=== PATIENT | male | born 1970 | race Hispanic/Latino ===

== ENCOUNTER 2017-07-27 17:26 | Emergency (ER) | payer SELFPAY ==
[2017-07-27 18:01] LABS: Absolute Lymphocytes (CBC) 1.4 K/uL (0.7-4.9); Absolute Monocytes 0.5 K/uL (0.1-1.3); Basophils % 0.7 % (0-1.3); Eosinophils % 0.9 % (0-4.4); Hematocrit 43.4 % (39.6-49.0); MCH 30.5 pg (27.0-35.0); MCV 91.9 fL (80-100); MPV 10.3 fL (7.6-11.3); Monocytes % 5.2 % (3.3-12.3); RBC Red Blood Cell Count 4.73 M/uL (4.33-5.43)
[2017-07-27] MEDS ORDERED: INSULIN -REGULAR HUMAN 50 UNIT/0.5 ML ML ONE ×2 (18:04→18:44)
[2017-07-27] MEDS ORDERED: NA CHLORIDE 0.9% 1,000 ML ONE ×3 (18:04→19:36)
[2017-07-27 18:13] LABS: Protime INR 0.88
[2017-07-27 18:13] LABS: Arterial Blood Carboxyhemoglob 1.2 % (0-1.5); Blood Gas Oxyhemoglobin 94.3 % (94-97); Blood O2 Saturation 96.4 % (92-98.5)
[2017-07-27 18:17] LABS: Potassium 4.6 mEq/L (3.6-5.0)
--- NOTE | 2017-07-27 18:18 | RAD REPORT ---
EXAM DESCRIPTION: RAD - Chest Single View - 07/27/2017 6:11 pm CLINICAL HISTORY: Chest pain, diabetes. COMPARISON: 12/30/2012 FINDINGS: Portable technique limits examination quality. The lungs are grossly clear. The heart is normal in size. No displaced fractures. IMPRESSION: No acute intrathoracic process suspected.
[2017-07-27 18:27] LABS: Bilirubin Direct 0.1 mg/dL (0-0.2); Bilirubin Total 1.1 mg/dL (0.3-1.2); CKMB Creatine Kinase MB 1.4 ng/ml (0.3-4.0); Magnesium 2.2 mg/dL (1.8-2.5); Protein, Total 7.2 g/dL (6.0-8.3)
[2017-07-27 18:28] LABS: Urine Blood NEGATIVE (NEG); Urine Glucose 2+ (NEG); Urine Protein NEGATIVE (NEG); Urine Specific Gravity <1.005 (1.005-1.030)
[2017-07-27] MEDS ORDERED: INSULIN DETEMIR 100 UNIT/1 ML INSULIN SQ ONE (19:00)
--- NOTE | 2017-07-27 19:49 | ER ---
Nurse's Notes [facility] Name: Delonte Starks Age: 47 yrs Sex: Male : 1970 Arrival Date: 07/27/2017 Time: 17:28 Bed 8 Private MD: Diagnosis: Type 1 diabetes mellitus;Weakness Presentation: 07/27 17:29 Presenting complaint: EMS states: Pt called for adriana leg pain x 2 week sand blurred ph vision, hx of IDDM, reports that he has not taken his insulin since May r/t financial problems, BGL reading HIGH for EMS, reports hx of DKA. Transition of care: patient was not received from another setting of care. Onset of symptoms was July 27, 2017. Risk Assessment: Do you want to hurt yourself or someone else? Patient reports no desire to harm self or others. Initial Sepsis Screen: Does the patient meet any 2 criteria? No. Patient's initial sepsis screen is negative. Does the patient have a suspected source of infection? No. Patient's initial sepsis screen is negative. Care prior to arrival: BGL reading HIGH (>450). 17:29 Method Of Arrival: EMS: [facility] 17:29 Acuity: ABHISHEK 2 ph Triage Assessment: 19:14 General: Appears in no apparent distress. comfortable, Behavior is calm, cooperative, ch appropriate for age. Pain: Denies pain. Neuro: No deficits noted. Respiratory: Airway is patent Respiratory effort is even, unlabored, Breath sounds are clear bilaterally. GI: No signs and/or symptoms were reported involving the gastrointestinal system. Derm: Skin is pale. Historical: - Allergies: 17:37 No Known Allergies; ph - Home Meds: 17:37 Lantus Sub-Q [Active]; Novolin R Sub-Q [Active]; ph - PMHx: 17:37 Diabetes - IDDM; ph - Immunization history:: Adult Immunizations unknown. - Social history:: Smoking status: Patient/guardian denies using tobacco. - Ebola Screening: : No symptoms or risks identified at this time. Screenin:00 Abuse screen: Denies threats or abuse. Denies injuries from another. Nutritional bp screening: No deficits noted. Tuberculosis screening: No symptoms or risk factors identified. Fall Risk None identified. Assessment: 18:21 Reassessment: Patient appears in no apparent distress at this time. Patient and/or ch family updated on plan of care and expected duration. Pain level reassessed. Patient is alert, oriented x 3, equal unlabored respirations, skin warm/dry/pink. 19:00 Reassessment: RECD REPORT FROM ESTHER MONGE. 47YO HM P/W HYPERGLYCEMIA. NO ANION GAP bp NOTED, PT VS STABLE ON MONITOR. 21:00 Reassessment: ADMIT IN PROCESS, NO APPARENT DISTRESS. VS STABLE ON MONITOR. bp 21:57 Reassessment: PER ADMIT , BMP TO BE RE-EVALUATED PRIOR TO FURTHER ADMIT CONSIDERATION.bp 23:24 Reassessment: ADMIT DEFERRED BY HOSPITALIST, PT D/C HOME AMBULATORY WITH FAMILY, DX bp WITH HYERGLYCEMIA (RESOLVED). Vital Signs: 17:32 BP 145 / 100; Pulse 91; Resp 18; Pulse Ox 96% on R/A; Weight 108.86 kg; Height 5 ft. 11 ph in. (180.34 cm); Pain 9/10; 18:21 BP 109 / 82; Pulse 93; Resp 16; Temp 98.6; Pulse Ox 99% on R/A; Pain 0/10; ch 19:00 BP 147 / 96; Pulse 93; Resp 19; Pulse Ox 97% ; bp 20:39 BP 118 / 87; Pulse 76; Resp 15; Pulse Ox 98% ; bp 21:00 BP 127 / 74; Pulse 93; Resp 20; Pulse Ox 99% ; bp 22:00 BP 129 / 87; Pulse 73; Resp 20; Pulse Ox 98% ; bp 23:00 BP 123 / 91; Pulse 80; Resp 17; Pulse Ox 97% ; bp 17:32 Body Mass Index 33.47 (108.86 kg, 180.34 cm) ph ED Course: 17:28 Patient arrived in ED. ph 17:29 Wes Hollingsworth MD is Attending Physician. jose luis 17:30 Inserted saline lock: 20 gauge in right forearm, using aseptic technique. Blood ch collected. 17:32 Triage completed. ph 17:35 Stephanie Bravo, SALEEM is Primary Nurse. ch 17:38 Arm band placed on. ph 17:47 EKG done, by commercial hvac service technician. reviewed by Wes Hollingsworth MD. sm3 18:08 X-ray completed. Portable x-ray completed in exam room. Patient tolerated procedure kc2 well. 18:10 XRAY Chest (1 view) In Process Unspecified. EDMS 19:14 Patient has correct armband on for positive identification. Placed in gown. Bed in low ch position. Call light in reach. Side rails up X 1. Report given to Lilian Sun. 19:45 Dino Hamilton, RN is Primary Nurse. bp 19:47 Shital Carrasquillo MD is Hospitalizing Provider. jose luis 23:25 No provider procedures requiring assistance completed. IV discontinued, intact, bp bleeding controlled, No redness/swelling at site. Pressure dressing applied. Administered Medications: 18:19 Drug: Insulin Regular Human 10 units {Co-Signature: ph (Esther Carmen RN).} Route: ch Sub-Q; Site: right upper arm; 18:37 Follow up: Response: No adverse reaction ch 18:20 Drug: NS 0.9% 1000 ml Route: IV; Rate: 1 bolus; Site: right forearm; ch 18:38 Follow up: IV Status: Completed infusion; IV Intake: 1000ml ch 18:20 Drug: Insulin Regular Human 10 units {Co-Signature: ph (Esther Carmen RN).} Route: IVP; Site: right forearm; 18:38 Follow up: Response: No adverse reaction ch 18:38 Drug: NS 0.9% 1000 ml Route: IV; Rate: 1 bolus; Site: right forearm; ch 18:45 Drug: Insulin Regular Human 10 units {Co-Signature: (Stephanie Bravo RN).} Route: ss IVP; Site: right upper arm; 19:08 Follow up: Response: No adverse reaction; Marked relief of symptoms ch 18:55 Drug: Levemir 100 unit/mL 40 units Route: Sub-Q; Site: right upper arm; ss 19:08 Follow up: Response: No adverse reaction; Marked relief of symptoms ch 19:30 Drug: NS 0.9% 1000 ml Route: IV; Rate: 125 ml/hr; Site: right forearm; bp 20:15 Drug: Potassium Chloride 20 mEq Route: PO; bp 21:56 Follow up: Response: No adverse reaction bp Point of Care Testing: Blood Glucose: 19:08 Blood Glucose: 404 mg/dL; ch 20:39 Blood Glucose: 277 mg/dL; bp Ranges: Intake: 18:38 IV: 1000ml; Total: 1000ml. ch Outcome: 19:48 Decision to Hospitalize by Provider. jose luis 23:26 Discharged to home ambulatory, with family. bp 23:26 Condition: stable 23:26 Discharge instructions given to patient, Instructed on discharge instructions, follow up and referral plans. medication usage, Demonstrated understanding of instructions, follow-up care, medications, Prescriptions given X 1. 23:27 Patient left the ED. bp Addendum: 08/01/2017 11:05 Addendum: Culture Results: Positive urine culture. No follow up orders per MISBAH Rosenberg as patient was not having any urinary symptoms and was instructed to follow up with PCP. Signatures: Dispatcher [employer] EDMS Stephanie Bravo, RN RN Wes Hollingsworth MD MD cha Smirch, Shelby, RN RN Esther Carmen RN RN Tracey Brooks [facility] Dino Hamilton RN RN Dipti Aguero 3 Esther Carmen RN ph Stephanie Bravo RN
--- NOTE | 2017-07-27 19:49 | EDPHYS ---
Physician Documentation [facility] Name: Delonte Starks Age: 47 yrs Sex: Male : 1970 Arrival Date: 07/27/2017 Time: 17:28 Bed 8 Private MD: ED Physician Wes Hollingsworth HPI: 07/27 17:51 This 47 yrs old Male presents to ER via EMS with complaints of High Blood jose luis Sugar. 17:51 This 47 yrs old Male presents to ER via EMS with complaints of High Blood jose luis Sugar. 17:51 The patient or guardian reports hyperglycemia. Onset: The symptoms/episode jose luis began/occurred 5 day(s) ago. Associated signs and symptoms: Pertinent positives: dry skin, nausea, polydipsia, polyuria. Current symptoms: In the emergency department the patient's symptoms are unchanged from the initial presentation. The patient has experienced similar episodes in the past, several times. Historical: - Allergies: 17:37 No Known Allergies; ph - Home Meds: 17:37 Lantus Sub-Q [Active]; Novolin R Sub-Q [Active]; ph - PMHx: 17:37 Diabetes - IDDM; ph - Immunization history:: Adult Immunizations unknown. - Social history:: Smoking status: Patient/guardian denies using tobacco. - Ebola Screening: : No symptoms or risks identified at this time. ROS: 17:52 Constitutional: Negative for fever, chills, and weight loss, Eyes: Negative for injury, jose luis pain, redness, and discharge, ENT: Negative for injury, pain, and discharge, Neck: Negative for injury, pain, and swelling, Cardiovascular: Negative for chest pain, palpitations, and edema, Respiratory: Negative for shortness of breath, cough, wheezing, and pleuritic chest pain, Abdomen/GI: Negative for abdominal pain, nausea, vomiting, diarrhea, and constipation, Back: Negative for injury and pain, : Negative for injury, bleeding, discharge, and swelling, MS/Extremity: Negative for injury and deformity, Skin: Negative for injury, rash, and discoloration, Neuro: Negative for headache, weakness, numbness, tingling, and seizure, Psych: Negative for depression, anxiety, suicide ideation, homicidal ideation, and hallucinations, Allergy/Immunology: Negative for hives, rash, and allergies, Hematologic/Lymphatic: Negative for swollen nodes, abnormal bleeding, and unusual bruising. 17:52 Endocrine: Positive for polydipsia, polyuria. Exam: 17:52 Constitutional: This is a well developed, well nourished patient who is awake, alert, jose luis and in no acute distress. Head/Face: Normocephalic, atraumatic. Eyes: Pupils equal round and reactive to light, extra-ocular motions intact. Lids and lashes normal. Conjunctiva and sclera are non-icteric and not injected. Cornea within normal limits. Periorbital areas with no swelling, redness, or edema. ENT: Nares patent. No nasal discharge, no septal abnormalities noted. Tympanic membranes are normal and external auditory canals are clear. Oropharynx with no redness, swelling, or masses, exudates, or evidence of obstruction, uvula midline. Mucous membranes moist. Neck: Trachea midline, no thyromegaly or masses palpated, and no cervical lymphadenopathy. Supple, full range of motion without nuchal rigidity, or vertebral point tenderness. No Meningismus. Chest/axilla: Normal chest wall appearance and motion. Nontender with no deformity. No lesions are appreciated. Cardiovascular: Regular rate and rhythm with a normal S1 and S2. No gallops, murmurs, or rubs. Normal PMI, no JVD. No pulse deficits. Respiratory: Lungs have equal breath sounds bilaterally, clear to auscultation and percussion. No rales, rhonchi or wheezes noted. No increased work of breathing, no retractions or nasal flaring. Abdomen/GI: Soft, non-tender, with normal bowel sounds. No distension or tympany. No guarding or rebound. No evidence of tenderness throughout. Back: No spinal tenderness. No costovertebral tenderness. Full range of motion. Male : Normal genitalia with no discharge or lesions. Skin: Warm, dry with normal turgor. Normal color with no rashes, no lesions, and no evidence of cellulitis. MS/ Extremity: Pulses equal, no cyanosis. Neurovascular intact. Full, normal range of motion. Neuro: Awake and alert, GCS 15, oriented to person, place, time, and situation. Cranial nerves II-XII grossly intact. Motor strength 5/5 in all extremities. Sensory grossly intact. Cerebellar exam normal. Normal gait. Psych: Awake, alert, with orientation to person, place and time. Behavior, mood, and affect are within normal limits. Vital Signs: 17:32 BP 145 / 100; Pulse 91; Resp 18; Pulse Ox 96% on R/A; Weight 108.86 kg; Height 5 ft. 11 ph in. (180.34 cm); Pain 9/10; 18:21 BP 109 / 82; Pulse 93; Resp 16; Temp 98.6; Pulse Ox 99% on R/A; Pain 0/10; ch 19:00 BP 147 / 96; Pulse 93; Resp 19; Pulse Ox 97% ; bp 20:39 BP 118 / 87; Pulse 76; Resp 15; Pulse Ox 98% ; bp 21:00 BP 127 / 74; Pulse 93; Resp 20; Pulse Ox 99% ; bp 22:00 BP 129 / 87; Pulse 73; Resp 20; Pulse Ox 98% ; bp 23:00 BP 123 / 91; Pulse 80; Resp 17; Pulse Ox 97% ; bp 17:32 Body Mass Index 33.47 (108.86 kg, 180.34 cm) ph MDM: 17:29 Patient medically screened. [facility] 17:53 Data reviewed: vital signs, nurses notes, lab test result(s), EKG, radiologic studies, jose luis plain films. 07/27 17:34 Order name: Basic Metabolic Panel; Complete Time: 18:30 [facility] 07/27 17:34 Order name: BNP; Complete Time: 18:30 [facility] 07/27 17:34 Order name: CBC with Diff; Complete Time: 18:26 [facility] 07/27 17:34 Order name: Ckmb; Complete Time: 18:30 [facility] 07/27 17:34 Order name: CPK; Complete Time: 18:30 [facility] 07/27 17:34 Order name: LFT's; Complete Time: 18:30 [facility] 07/27 17:34 Order name: Magnesium; Complete Time: 18:30 [facility] 07/27 17:34 Order name: PT-INR; Complete Time: 18:26 [facility] 07/27 17:35 Order name: Ptt, Activated; Complete Time: 18:26 [facility] 07/27 17:35 Order name: Troponin (emerg Dept Use Only); Complete Time: 18:30 [facility] 07/27 17:35 Order name: Urine Culture [facility] 07/27 17:35 Order name: Lipase; Complete Time: 18:30 [facility] 07/27 17:35 Order name: glucometer results - FOR PT WITH NO ID; Complete Time: 19:53 ph 07/27 17:35 Order name: XRAY Chest (1 view); Complete Time: 18:26 [facility] 07/27 17:35 Order name: EKG; Complete Time: 17:35 [facility] 07/27 17:35 Order name: Cardiac monitoring; Complete Time: 18:21 [facility] 07/27 17:41 Order name: ABG; Complete Time: 18:26 [facility] 07/27 18:22 Order name: Urine Dipstick--Ancillary (enter results); Complete Time: 18:30 ag 07/27 19:10 Order name: Chem 7 jose luis 07/27 21:56 Order name: BMP bp 07/27 22:27 Order name: Basic Metabolic Panel EDMS 07/27 17:35 Order name: EKG - Nurse/Tech; Complete Time: 18:38 [facility] 07/27 17:35 Order name: IV Saline Lock; Complete Time: 18:21 [facility] 07/27 17:35 Order name: Labs collected and sent; Complete Time: 18:21 [facility] 07/27 17:35 Order name: O2 Per Protocol; Complete Time: 18:21 [facility] 07/27 17:35 Order name: O2 Sat Monitoring; Complete Time: 18:21 [facility] 07/27 17:35 Order name: Urine Dipstick-Ancillary (obtain specimen); Complete Time: 18:21 [facility] Administered Medications: 18:19 Drug: Insulin Regular Human 10 units {Co-Signature: pratibha (Esther Carmen RN).} Route: Sub-Q; Site: right upper arm; 18:37 Follow up: Response: No adverse reaction 18:20 Drug: NS 0.9% 1000 ml Route: IV; Rate: 1 bolus; Site: right forearm; 18:38 Follow up: IV Status: Completed infusion; IV Intake: 1000ml 18:20 Drug: Insulin Regular Human 10 units {Co-Signature: pratibha (Esther Carmen RN).} Route: IVP; Site: right forearm; 18:38 Follow up: Response: No adverse reaction 18:38 Drug: NS 0.9% 1000 ml Route: IV; Rate: 1 bolus; Site: right forearm; 18:45 Drug: Insulin Regular Human 10 units {Co-Signature: (Stephanie Bravo RN).} Route: IVP; Site: right upper arm; 19:08 Follow up: Response: No adverse reaction; Marked relief of symptoms ch 18:55 Drug: Levemir 100 unit/mL 40 units Route: Sub-Q; Site: right upper arm; ss 19:08 Follow up: Response: No adverse reaction; Marked relief of symptoms ch 19:30 Drug: NS 0.9% 1000 ml Route: IV; Rate: 125 ml/hr; Site: right forearm; bp 20:15 Drug: Potassium Chloride 20 mEq Route: PO; bp 21:56 Follow up: Response: No adverse reaction bp Point of Care Testing: Blood Glucose: 19:08 Blood Glucose: 404 mg/dL; ch 20:39 Blood Glucose: 277 mg/dL; bp Ranges: Critical Glucose Levels:Adult <50 mg/dl or >400 mg/dl <40 mg/dl or >180 mg/dl Disposition: 07/27/17 19:48 Hospitalization ordered by Shital Carrasquillo for Observation. Preliminary diagnosis are Type 1 diabetes mellitus, Weakness. - Bed requested for Telemetry/MedSurg (observation). - Status is Observation. bp - Condition is Fair. - Problem is new. - Symptoms have improved. UTI on Admission? No Signatures: Dispatcher [employer] EDCT Stephanie Bravo RN RN Tessa Conner RN SALEEM Wes Hollingsworth MD MD cha Smirch, Shelby, RN RN Esther Carmen RN RN Dino Hamilton RN RN Génesis Hyman Esther Carmen RN ph Stephanie Bravo RN Corrections: (The following items were deleted from the chart) 17:36 17:35 GLUCOSE+C.LAB.BRZ ordered. EDCT EDCT 20:11 19:48 Hospitalization Ordered by Shital Carrasquillo MD for Observation. Preliminary mw diagnosis is Type 1 diabetes mellitus; Weakness. Bed requested for Telemetry/MedSurg (observation). Status is Observation. Condition is Fair. Problem is new. Symptoms have improved. UTI on Admission? No. jose luis 20:13 20:11 07/27/2017 19:48 Hospitalization Ordered by Shital Carrasquillo MD for Observation. eb Preliminary diagnosis is Type 1 diabetes mellitus; Weakness. Bed requested for Telemetry/MedSurg (observation). Status is Observation. Condition is Fair. Problem is new. Symptoms have improved. UTI on Admission? No. mw 20:13 20:13 07/27/2017 19:48 Hospitalization Ordered by Shital Carrasquillo MD for Observation. mw Preliminary diagnosis is Type 1 diabetes mellitus; Weakness. Bed requested for Telemetry/MedSurg (observation). Status is Observation. Condition is Fair. Problem is new. Symptoms have improved. UTI on Admission? No. eb 23:04 20:13 07/27/2017 19:48 Hospitalization Ordered by Shital Carrasquillo MD for Observation. mw Preliminary diagnosis is Type 1 diabetes mellitus; Weakness. Bed requested for Telemetry/MedSurg (observation). Status is Observation. Condition is Fair. Problem is new. Symptoms have improved. UTI on Admission? No. mw 23:27 23:04 07/27/2017 19:48 Hospitalization Ordered by Shital Carrasquillo MD for Observation. bp Preliminary diagnosis is Type 1 diabetes mellitus; Weakness. Bed requested for Telemetry/MedSurg (observation). Status is Observation. Condition is Fair. Problem is new. Symptoms have improved. UTI on Admission? No. mw
[2017-07-27] MEDS ORDERED: D50W 25 GM/50 ML SYRINGE IV PRN ×2 (19:50→19:51)
[2017-07-27] MEDS ORDERED: GLUCAGON 1 MG/VIAL IM PRN ×2 (19:50→19:51)
[2017-07-27] MEDS ORDERED: POTASSIUM CL SA 10 MEQ TAB PO ONE (20:34)
[2017-07-27] MEDS ORDERED: INSULIN -REGULAR HUMAN 50 UNIT/0.5 ML ML SQ SCH (21:00)
[2017-07-27 22:25] LABS: BUN Blood Urea Nitrogen 13 mg/dL (6-20); Bicarbonate 23 mEq/L (21-31); Glucose Level 294 mg/dL (65-120); Sodium Level 137 mEq/L (135-145)
--- NOTE | 2017-07-27 23:02 | P.HP ---
Certification for Inpatient Patient admitted to: Observation With expected LOS: <2 Midnights Practitioner: I am a practitioner with admitting privileges, knowledge of patient current condition, hospital course, and medical plan of care. Services: Services provided to patient in accordance with Admission requirements found in Title 42 Section 412.3 of the Code of Federal Regulations Patient History Date of Service: 07/27/17 Reason for admission: uncotrolled diabetes mellitus, hyperglycemia History of Present Illness: Mr Starks is a 47 years old male with history of DM II, insulin dependent, who quit taking his insulin 3 month ago due to financial issues. He does not have PCP either. Since 2 weeks ago, he start with blurred vision, increasing urination and thirsty. He denied abdominal pain but has had nausea and vomiting. He was also dizzy at the time of arrival. Lab work was remarkable for hyperglycemia 891 mg/dl. No signs of DKA. Allergies No Known Allergies Allergy (Unverified 12/31/12 00:15) Home Medications: Aspirin Enteric Coated [ASPIRIN 81 MG EC*] 81 mg PO DAILY 12/31/12 Insulin Aspart [Novolog*] 0 unit SQ TID #1 ml 01/05/13 Insulin Glargine Human [Lantus*] 20 unit SQ BID #1 ml 01/05/13 - Past Medical/Surgical History Diabetic: Yes -: IDDM Past Surgical History: Reviewed- Non-Contributory - Family History Family History: Reviewed- Non-Contributory - Social History Alcohol use: Yes CD- Drugs: Yes Caffeine use: Yes Place of Residence: Home Review of Systems 10-point ROS is otherwise unremarkable Physical Examination - Physical Exam General: Alert, In no apparent distress HEENT: Atraumatic, PERRLA, Mucous membr. moist/pink, EOMI, Sclerae nonicteric Neck: Supple, 2+ carotid pulse no bruit, No LAD, Without JVD or thyroid abnormality Respiratory: Clear to auscultation bilaterally, Normal air movement Cardiovascular: Regular rate/rhythm, Normal S1 S2 Gastrointestinal: Normal bowel sounds, No tenderness Musculoskeletal: No tenderness Integumentary: No rashes Neurological: Normal gait, Normal speech, Normal strength at 5/5 x4 extr, Normal tone, Normal affect Lymphatics: No axilla or inguinal lymphadenopathy - Studies Laboratory Data (last 24 hrs) 07/27/17 17:40: PT 10.4, INR 0.88, APTT 33.4 07/27/17 17:40: WBC 10.1, Hgb 14.4, Hct 43.4, Plt Count 285 07/27/17 17:40: B-Natriuretic Peptide 13 07/27/17 17:40: Sodium 124 L, Potassium 4.6, BUN 16, Creatinine 1.02, Glucose 891 H*, Magnesium 2.2, Total Bilirubin 1.1, AST 14, ALT 27, Alkaline Phosphatase 98, Lipase 52 H Assessment and Plan - Problems (Diagnosis) (1) Diabetes mellitus Current Visit: Yes Status: Acute Qualifiers: Diabetes mellitus type: type 2 Diabetes mellitus senior living insulin use: with director long term care use Diabetes mellitus complication status: with unspecified complications Qualified Code(s): E11.8 - Type 2 diabetes mellitus with unspecified complications; Z79.4 - FPC (current) use of insulin (2) Hyperosmolar syndrome Current Visit: Yes Status: Acute - Plan The patient came to ER with signs consistent with hyperosmolar syndrome. His blood sugar was above 800 mg/dl. He was treated with aggressive IV fluid infusion and SQ long acting and regular insulin. After a few hours in ED, the patient significantly improved his symptoms, he was able to ambulate and tolerate oral intake. BS also decreased. At this point the patient is clinically and hemodynamically stable to be discharged home. It is very important to be compliant with his medication, patient was advised about potential diabetic complications. Also advised to establish a PCP MELINDA for insulin dose adjustment as needed. The patient will be discharge home in stable condition. - Advance Directives Does patient have a Living Will: No Does patient have a Durable POA for Healthcare: No - Code Status/Comfort Care Code Status Assessed: Yes Code Status: Full Code
[2017-07-27 23:32] VITALS: TEMP 98.6
[2017-07-27 23:38] VITALS: BP 123/91; O2SAT 97
--- NOTE | 2017-07-28 06:20 | EKG ---
Test Date: 2017-07-27 Test Time: 17:43:11 Director Food And Beverage: GIOVANNI MEASUREMENT RESULTS: Intervals: Rate: 89 VA: 146 QRSD: 84 QT: 354 QTc: 430 Marion: P: 51 VA: 146 QRS: -11 T: 31 INTERPRETIVE STATEMENTS: Normal sinus rhythm Moderate voltage criteria for LVH, may be normal variant Nonspecific ST abnormality Abnormal ECG Compared to ECG 12/31/2012 07:54:09 Prolonged QT interval no longer present ST (T wave) deviation still present Electronically Signed On 07-28-17 06:19:43 CDT by Howard Rodriguez
[2017-07-28] MEDS ORDERED: INSULIN DETEMIR 100 UNIT/1 ML INSULIN SQ SCH (08:00)
== END 2017-07-27 23:25 | disposition home or self-care (01) ==
LOC: ER 17:26 → ERHOLD 19:49 → UNDOADMOB 19:49 → UNDODISOB 23:25 → ER 23:25
DX: E10.65 Type 1 diabetes mellitus with hyperglycemia (principal); Z79.4 Long term (current) use of insulin
CPT/HCPCS: 36415; 71045; 80048; 80076; 81003; 82550; 82553; 82805; 82962; 83690; 83735; 83880; 84484; 85025; 85610; 85730; 87077; 87086; 87088; 87186; 93005; 96372; 99284; G0378; J7030

== ENCOUNTER 2024-03-06 18:10 | Emergency (ER) | payer SELFPAY ==
[2024-03-06] MEDS ORDERED: NA CHLORIDE 0.9% 1,000 ML ONE ×3 (18:24→21:38)
[2024-03-06 18:53] LABS: Absolute Basophils 0.3 K/uL (0-0.5); Absolute Eosinophils 0.1 K/uL (0-0.5); Absolute Lymphocytes (CBC) 0.8 K/uL (0.7-4.9); Absolute Monocytes 0.4 K/uL (0.1-1.3); Absolute Neutrophil 8.9 K/uL (1.8-8.0); Basophils % 2.4 % (0-1.3); Eosinophils % 1.2 % (0-4.4); Hematocrit 36.4 % (39.6-49.0); Hemoglobin 11.6 g/dL (13.6-17.9); Lymphocytes % 7.4 % (15.3-44.8); MCH 26.9 pg (27.0-35.0); MCHC 31.8 g/dL (32.0-36.0); MCV 84.4 fL (80-100); MPV 9.5 fL (7.6-11.3); Monocytes % 3.5 % (3.3-12.3); Neutrophils % 85.5 % (41.7-73.7); Platelets 329 thou/uL (152-406); RBC Red Blood Cell Count 4.31 M/uL (4.33-5.43); Red Cell Distribution Width 15.5 % (12.1-15.2)
[2024-03-06 18:55] LABS: ALT/SGPT 39 U/L (16-61); AST/SGOT 18 U/L (15-37); Albumin 3.2 g/dL (3.4-5.0); Albumin/Globulin Ratio 0.8 (1.1-1.8); Alkaline Phosphatase 131 U/L (45-117); BETA HYDROXYBUTYRATE 0.56 mmol/L (0.02-0.27); BUN Blood Urea Nitrogen 26 mg/dL (7-18); Bicarbonate 21 mEq/L (21-32); Bilirubin Direct < 0.2 mg/dL (0-0.2); Bilirubin Indirect, Calculated 0.1 mg/dL (0.2-0.8); Bilirubin Total 0.3 mg/dL (0.2-1.0); Glomerular Filtration Rate 56 ml/min (=/>90); Glucose Level 906 mg/dL (74-106); Phosphorus 4.6 mg/dL (2.5-4.9); Protein, Total 7.2 g/dL (6.4-8.2); Sodium Level 128 mEq/L (136-145)
[2024-03-06 18:58] LABS: Lipase 103 U/L (13-75)
[2024-03-06] MEDS ORDERED: INSULIN REGULAR (HUMAN) 100 UNIT/ML ONE ×2 (19:09→21:38)
[2024-03-06 19:24] LABS: Blood Morphology Comment NOT SEEN (NOT SEEN); Platelet Estimate ADEQ; White Blood Cell Scan OK (OK)
[2024-03-06 19:59] LABS: Specific Gravity 1.029 (1.005-1.030); Sqamous Epithelial None Seen /HPF (None Seen); Urine Bacteria None Seen /HPF (<20); Urine Bilirubin NEGATIVE (Negative); Urine Blood Negative (Negative); Urine Clarity Clear (Clear); Urine Color Colorless (Yellow); Urine Culture Reflex Order NOT NEEDED; Urine Glucose 4+ (Over) (Negative); Urine Ketones TRACE (Negative); Urine Micro Reflex YN NO BILL MICROSCOPIC; Urine Mucus Slight /HPF (None Seen); Urine Nitrite NEGATIVE (Negative); Urine Protein NEGATIVE (Negative); Urine Urobilinogen Normal (Normal); Urine WBC <5 /HPF (<5); Urine Yeast (Budding) Trace /HPF (None Seen)
[2024-03-06 21:23] LABS: Anion Gap 12.3 mEq/L (5.0-15.0); Potassium 4.3 mEq/L (3.5-5.1)
--- NOTE | 2024-03-06 22:44 | EDPHYS ---
Physician Documentation [facility] Name: Delonte Starks Age: 53 yrs Sex: Male : 1970 Arrival Date: 03/06/2024 Time: 18:10 Bed 16 Private MD: ED Physician Jovon Romero HPI: 03/06 18:13 This 53 yrs old Male presents to ER via Unassigned with complaints of high sb4 blood sugar. 18:13 Patient states that his blood sugar has been running high for the past few weeks. He sb4 has a diagnosis of type 2 diabetes but has not taken any medication in several years. States that he does not check his blood sugar at home but has been very thirsty the so he knows that has been running high. He called EMS today because he was making him short of breath. EMS states that it ran high. Patient has no other complaints at this time. Does not complain of dizziness, blurry vision, nausea, or vomiting. Historical: - Allergies: 18:21 No Known Allergies; me1 - PMHx: 18:21 Diabetes - IDDM; Hypertensive disorder; me1 - Immunization history:: Adult Immunizations unknown. - Infectious Disease History:: Denies. - Social history:: Smoking status: Patient denies any tobacco usage or history of. ROS: 18:15 Constitutional: Negative for fever, chills, and weight loss, sb4 18:15 Respiratory: Positive for shortness of breath, 18:15 Endocrine: Positive for polydipsia, 18:15 All other systems are negative, Exam: 18:15 Constitutional: This is a well developed, well nourished patient who is awake, alert, sb4 and in no acute distress. Head/Face: Normocephalic, atraumatic. Eyes: Extra-ocular motions intact. Periorbital areas with no swelling, redness, or edema. ENT: Mucous membranes moist. Cardiovascular: Regular rate and rhythm with a normal S1 and S2. Respiratory: No increased work of breathing, no retractions or nasal flaring. Abdomen/GI: Soft, non-tender, no distension. Skin: Warm, dry with normal turgor. Normal color with no rashes, no lesions, and no evidence of cellulitis. MS/ Extremity: Pulses equal, no cyanosis. Neurovascular intact. Full, normal range of motion. Vital Signs: 18:15 BP 148 / 84; Pulse 103; Resp 22; Temp 98.2; Pulse Ox 99% on R/A; Weight 107.5 kg; me1 Height 5 ft. 11 in. ; Pain 0/10; 19:00 BP 157 / 97; Pulse 102; Resp 21; Pulse Ox 97% ; me1 20:07 BP 153 / 103; Pulse 98; Resp 20; Pulse Ox 96% ; me1 21:00 BP 142 / 93; Pulse 91; Resp 18; Pulse Ox 96% on R/A; rg5 22:00 BP 136 / 83; Pulse 93; Resp 17; Pulse Ox 96% on R/A; Pain 0/10; rg5 23:00 BP 131 / 80; Pulse 89; Resp 17; Pulse Ox 97% on R/A; rg5 18:15 Body Mass Index 33.05 (107.50 kg, 180.34 cm) me1 18:15 Pain Scale: Adult me1 22:00 Pain Scale: Adult rg5 MDM: 18:12 Medical Screening Exam initiated sb4 22:44 Data reviewed: vital signs, nurses notes, lab test result(s), and as a result, I will sb4 discharge patient. Care significantly affected by the following chronic conditions: Diabetes, Hypertension. Care significantly affected by the following Social Determinants of Health: Poor access to healthcare and/or lack of insurance, Inadequate housing, Unemployment. Counseling: I had a detailed discussion with the patient and/or guardian regarding the historical points, exam findings, and any diagnostic results supporting the discharge/admit diagnosis, lab results, the need for outpatient follow up, for definitive care, to return to the emergency department if symptoms worsen or persist or if there are any questions or concerns that arise at home. 03/06 18:12 Order name: BETA HYDROXYBUTYRATE; Complete Time: 18:58 sb4 03/06 18:12 Order name: Basic Metabolic Panel; Complete Time: 18:58 sb4 03/06 18:12 Order name: CBC with Diff; Complete Time: 19:25 sb4 03/06 18:12 Order name: Hepatic Function; Complete Time: 18:58 sb4 03/06 18:12 Order name: Lipase; Complete Time: 18:58 sb4 03/06 18:12 Order name: Phosphorus; Complete Time: 18:58 sb4 03/06 18:39 Order name: Glucose, Ancillary Testing; Complete Time: 18:43 EDMS 03/06 19:24 Order name: CBC Smear Scan; Complete Time: 19:25 EDMS 03/06 19:25 Order name: UAM; Complete Time: 19:59 sb4 03/06 20:41 Order name: BMP; Complete Time: 21:24 sb4 03/06 20:52 Order name: Glucose, Ancillary Testing; Complete Time: 20:52 EDMS 03/06 22:51 Order name: Glucose, Ancillary Testing; Complete Time: 22:52 EDMS 03/06 18:12 Order name: EKG; Complete Time: 18:13 sb4 03/06 18:12 Order name: Cardiac monitoring; Complete Time: 19:04 sb4 03/06 18:12 Order name: EKG - Nurse/Tech; Complete Time: 19:04 sb4 03/06 18:12 Order name: IV Saline Lock; Complete Time: 18:34 sb4 03/06 18:12 Order name: O2 Per Protocol; Complete Time: 18:28 sb4 03/06 18:12 Order name: O2 Sat Monitoring; Complete Time: 18:28 sb4 03/06 18:12 Order name: Accucheck; Complete Time: 18:28 sb4 03/06 19:19 Order name: Accucheck: after fluids finish; Complete Time: 20:47 sb4 03/06 22:06 Order name: Accucheck: after fluids; Complete Time: 22:43 sb4 EC:43 Rate is 97 beats/min. Rhythm is regular, Normal Sinus Rhythm. [place] interval is normal at sb4 162 msec. QRS interval is normal at 92 msec. QT interval is prolonged at 364 msec. No Q waves. T waves are Normal. No ST changes noted. Clinical impression: Normal ECG. Interpreted by me. Reviewed by me. Administered Medications: 18:36 Drug: NS 0.9% IV 1000 ml IV at 1000 ml once; to be given as a bolus over 60 minutes me1 Route: IV; Rate: 1000 ml; Site: right antecubital; 20:36 Follow up: Response: No adverse reaction; IV Status: Completed infusion; IV Intake: me1 1000ml 19:14 Drug: NS 0.9% IV 1000 ml IV at 1000 ml once; to be given as a bolus over 60 minutes me1 Route: IV; Rate: 1000 ml; Site: right antecubital; 20:36 Follow up: Response: No adverse reaction; IV Status: Completed infusion; IV Intake: me1 1000ml 19:16 Drug: Insulin Regular Human Sub-Q 5 units Sub-Q once {Co-Signature: 1 (maria guadalupe Olvera RN).} Route: Sub-Q; Site: right upper arm; 20:36 Follow up: Response: No adverse reaction me1 19:17 Drug: Insulin Regular Human IVP 5 units IVP once {Co-Signature: 1 (Mattie Olvera RN).} Route: IVP; Site: right antecubital; 20:36 Follow up: Response: No adverse reaction me1 21:45 Drug: NS 0.9% IV 1000 ml IV at 1 bolus Per protocol; to be given as a bolus over 60 rg5 minutes Route: IV; Rate: 1 bolus; Site: right antecubital; 22:57 Follow up: IV Status: Completed infusion; IV Intake: 1000ml rg5 21:45 Drug: Insulin Regular Human IVP 5 units IVP once {Co-Signature: [email or web address] (cem Ordoñez RN).} Route: IVP; Site: right antecubital; 22:10 Follow up: Response: No adverse reaction rg5 21:45 Drug: Insulin Regular Human Sub-Q 5 units Sub-Q once {Co-Signature: jj7 cem Weiss RN).} Route: Sub-Q; Site: left lower abdomen; 22:10 Follow up: Response: No adverse reaction rg5 Point of Care Testing: Blood Glucose: 22:49 Blood Glucose: 340 mg/dL; sb4 Ranges: Critical Glucose Levels:Adult <50 mg/dl or >400 mg/dl <40 mg/dl or >180 mg/dl Disposition Summary: 03/06/24 22:44 Discharge Ordered Notes: Location: Home sb4 Problem: an ongoing problem sb4 Symptoms: have improved sb4 Condition: Stable sb4 Diagnosis - Type 2 diabetes mellitus with hyperglycemia sb4 Followup: sb4 - With: Filemon Chavez, DO - When: 2 - 3 days - Reason: Recheck today's complaints, Re-evaluation by your physician Discharge Instructions: - Discharge Summary Sheet sb4 - Type 2 Diabetes Mellitus, Diagnosis, Adult sb4 Forms: - Patient Portal Instructions sb4 - Leadership Thank You Letter sb4 Prescriptions: - insulin glargine 100 unit/mL Subcutaneous solution - inject 10 unit SUBCUTANEOUS route every morning; 100 milliliter; Refills: 0, sb4 Product Selection Permitted Addendum: 03/08/2024 17:41 I was immediately available for consultation during this patient's visit. I did not e c2 personally see the patient or discuss the patient with the CYRUS. . Signatures: Dispatcher [employer] EDMS Ekaterina Garcias, RN RN lg3 Amelia Mead PA-C PAGuillermina sb4 Mattie Olvera, RN RN me1 Jovon Romero MD MD ec2 Cedric Vines RN RN rg5 Mattie Olvera RN me1 Aida Ordoñez RN jj7 Corrections: (The following items were deleted from the chart) 03/06 18:13 18:13 BETA HYDROXYBUTYRATE+C.LAB.BRZ ordered. EDMS EDMS 18:13 18:13 BASIC METABOLIC PANEL+C.LAB.BRZ ordered. EDMS EDMS 18:13 18:13 CBC+H.LAB.BRZ ordered. EDMS EDMS 18:13 18:13 HEPATIC FUNCTION+C.LAB.BRZ ordered. EDMS EDMS 18:13 18:13 LIPASE+C.LAB.BRZ ordered. EDMS EDMS 18:13 18:13 PHOSPHORUS+C.LAB.BRZ ordered. EDMS EDMS 18:14 18:13 This 53 yrs old Male presents to ER via Unassigned with unknown sb4 complaint. sb4
--- NOTE | 2024-03-06 22:44 | ER ---
Nurse's Notes [facility] Name: Delonte Starks Age: 53 yrs Sex: Male : 1970 Arrival Date: 03/06/2024 Time: 18:10 Bed 16 Private MD: Diagnosis: Type 2 diabetes mellitus with hyperglycemia Presentation: 03/06 18:15 Chief complaint: EMS states: toned out for high blood sugar. c/o sob as well, states, me1 "I'm expelling excess sugar from my body" and that's why I'm SOB. c/o being thirsty, feet burning and leg cramps x 1 week. Also reports generalized weakness. BGL "HI". Coronavirus screen: Vaccine status: Patient reports being unvaccinated. Ebola Screen: No symptoms or risks identified at this time. Initial Sepsis Screen: Does the patient meet any 2 criteria? HR > 90 bpm. No. Patient's initial sepsis screen is negative. Does the patient have a suspected source of infection? No. Patient's initial sepsis screen is negative. Risk Assessment: Do you want to hurt yourself or someone else? Patient reports no desire to harm self or others. Onset of symptoms is unknown. 18:15 Method Of Arrival: EMS: [facility] sc1 18:15 Acuity: ABHISHEK 3 me1 Triage Assessment: 18:21 General: Appears in no apparent distress. obese, well groomed, well developed, Behavior me1 is calm, cooperative, appropriate for age, Reports toned out for high blood sugar. c/o sob as well, states, "I'm expelling excess sugar from my body" and that's why I'm SOB. c/o being thirsty, feet burning and leg cramps x 1 week. Also reports generalized weakness. BGL "HI". Pain: Denies pain. EENT: No signs and/or symptoms were reported regarding the EENT system. Neuro: Level of Consciousness is awake, alert, obeys commands, Oriented to person, place, time, situation, Appropriate for age. Cardiovascular: Patient's skin is warm and dry. Respiratory: Reports shortness of breath at rest on exertion Airway is patent Respiratory effort is even, unlabored, Respiratory pattern is regular, symmetrical. GI: No signs and/or symptoms were reported involving the gastrointestinal system. : No signs and/or symptoms were reported regarding the genitourinary system. Derm: Skin is intact, is healthy with good turgor, Skin is pink, warm \\T\\ dry. Musculoskeletal: No signs and/or symptoms reported regarding the musculoskeletal system. Historical: - Allergies: 18:21 No Known Allergies; me1 - PMHx: 18:21 Diabetes - IDDM; Hypertensive disorder; me1 - Immunization history:: Adult Immunizations unknown. - Infectious Disease History:: Denies. - Social history:: Smoking status: Patient denies any tobacco usage or history of. Screenin:23 [facility] ED Fall Risk Assessment (Adult) History of falling in the last 3 months, me1 including since admission No falls in past 3 months (0 pts) Confusion or Disorientation No (0 pts) Intoxicated or Sedated No (0 pts) Impaired Gait No (0 pts) Mobility Assist Device Used No (0 pt) Altered Elimination No (0 pt) Score/Fall Risk Level 0 - 2 = Low Risk Maintained a safe environment, Provided non-skid footwear, Hourly rounding (assess needs \\T\\ fall precautionary measures) done. Abuse screen: Denies threats or abuse. Nutritional screening: No deficits noted. Tuberculosis screening: No symptoms or risk factors identified. Assessment: 18:23 General: See triage assessment. me1 21:00 Reassessment: No changes from previously documented assessment. Patient and/or family rg5 updated on plan of care and expected duration. Pain level reassessed. 22:00 Reassessment: No changes from previously documented assessment. Patient and/or family rg5 updated on plan of care and expected duration. Pain level reassessed. Patient is alert, oriented x 3, equal unlabored respirations, skin warm/dry/pink. Vital Signs: 18:15 BP 148 / 84; Pulse 103; Resp 22; Temp 98.2; Pulse Ox 99% on R/A; Weight 107.5 kg; me1 Height 5 ft. 11 in. ; Pain 0/10; 19:00 BP 157 / 97; Pulse 102; Resp 21; Pulse Ox 97% ; me1 20:07 BP 153 / 103; Pulse 98; Resp 20; Pulse Ox 96% ; me1 21:00 BP 142 / 93; Pulse 91; Resp 18; Pulse Ox 96% on R/A; rg5 22:00 BP 136 / 83; Pulse 93; Resp 17; Pulse Ox 96% on R/A; Pain 0/10; rg5 23:00 BP 131 / 80; Pulse 89; Resp 17; Pulse Ox 97% on R/A; rg5 18:15 Body Mass Index 33.05 (107.50 kg, 180.34 cm) me1 18:15 Pain Scale: Adult me1 22:00 Pain Scale: Adult rg5 ED Course: 18:12 Patient arrived in ED. sb4 18:12 Amelia Mead PA-C is PHCP. sb4 18:12 Jovon Romero MD is Attending Physician. sb4 18:14 Mattie Olvera, SALEEM is Primary Nurse. me1 18:21 Triage completed. me1 18:21 Arm band placed on Patient placed in an exam room. me1 18:23 Patient has correct armband on for positive identification. Bed in low position. Call me1 light in reach. Side rails up X2. Provided Education on: POC. Verbalized understanding.. Client placed on continuous cardiac and pulse oximetry monitoring. NIBP monitoring applied. Pulse ox on. NIBP on. 18:23 No provider procedures requiring assistance completed. me1 18:34 BETA HYDROXYBUTYRATE Sent. me1 18:34 Basic Metabolic Panel Sent. me1 18:34 CBC with Diff Sent. me1 18:34 Hepatic Function Sent. me1 18:34 Lipase Sent. me1 18:34 Phosphorus Sent. me1 18:34 Initial lab(s) drawn, by ED staff, sent to lab. Inserted saline lock: 20 gauge in right me1 antecubital area, using aseptic technique. 19:49 UAM Sent. me1 19:49 Urine collected: clean catch specimen, clear. me1 22:43 Filemon Chavez DO is Referral Physician. sb4 23:00 IV discontinued. rg5 Administered Medications: 18:36 Drug: NS 0.9% IV 1000 ml IV at 1000 ml once; to be given as a bolus over 60 minutes me1 Route: IV; Rate: 1000 ml; Site: right antecubital; 20:36 Follow up: Response: No adverse reaction; IV Status: Completed infusion; IV Intake: me1 1000ml 19:14 Drug: NS 0.9% IV 1000 ml IV at 1000 ml once; to be given as a bolus over 60 minutes me1 Route: IV; Rate: 1000 ml; Site: right antecubital; 20:36 Follow up: Response: No adverse reaction; IV Status: Completed infusion; IV Intake: me1 1000ml 19:16 Drug: Insulin Regular Human Sub-Q 5 units Sub-Q once {Co-Signature: maria guadalupe Inman RN).} Route: Sub-Q; Site: right upper arm; 20:36 Follow up: Response: No adverse reaction me1 19:17 Drug: Insulin Regular Human IVP 5 units IVP once {Co-Signature: yennifer (Mattie Olvera RN).} Route: IVP; Site: right antecubital; 20:36 Follow up: Response: No adverse reaction me1 21:45 Drug: NS 0.9% IV 1000 ml IV at 1 bolus Per protocol; to be given as a bolus over 60 rg5 minutes Route: IV; Rate: 1 bolus; Site: right antecubital; 22:57 Follow up: IV Status: Completed infusion; IV Intake: 1000ml rg5 21:45 Drug: Insulin Regular Human IVP 5 units IVP once {Co-Signature: jj7 cem Weiss RN).} Route: IVP; Site: right antecubital; 22:10 Follow up: Response: No adverse reaction rg5 21:45 Drug: Insulin Regular Human Sub-Q 5 units Sub-Q once {Co-Signature: jj7 cem Weiss RN).} Route: Sub-Q; Site: left lower abdomen; 22:10 Follow up: Response: No adverse reaction rg5 Medication: 18:23 VIS not applicable for this client. me1 Point of Care Testing: Blood Glucose: 22:49 Blood Glucose: 340 mg/dL; sb4 Ranges: Intake: 20:36 IV: 1000ml; Total: 1000ml. me1 20:36 IV: 1000ml; Total: 2000ml. me1 22:57 IV: 1000ml; Total: 3000ml. rg5 Outcome: 22:44 Discharge ordered by MD. sb4 23:00 Discharged to home ambulatory, rg5 23:00 Condition: stable 23:00 Discharge instructions given to patient, Instructed on discharge instructions, follow up and referral plans. Demonstrated understanding of instructions, follow-up care, medications, Prescriptions given X 1, 23:08 Patient left the ED. rg5 Signatures: Ekaterina Garcias RN RN lg3 Amelia Mead PA-C PAGuillermina sb4 Mattie Olvera RN RN me1 Cedric Vines RN RN rg5 Mattie Olvera RN me1 Aida Ordoñez RN jj7
[2024-03-07 01:01] VITALS: TEMP 98.2
[2024-03-07 01:21] VITALS: BP 131/80; O2SAT 97
--- NOTE | 2024-03-09 13:01 | EKG ---
Test Date: 2024-03-06 Test Time: 18:36:57 Meter And Service Line Inspector: YAEL MEASUREMENT RESULTS: Intervals: Rate: 97 RI: 162 QRSD: 92 QT: 364 QTc: 462 [place]: P: 49 RI: 162 QRS: -3 T: 76 INTERPRETIVE STATEMENTS: Normal sinus rhythm Prolonged QT Abnormal ECG Compared to ECG 07/27/2017 17:43:11 Prolonged QT interval now present Left ventricular hypertrophy no longer present ST (T wave) deviation no longer present Electronically Signed On 03-09-24 12:58:54 TREND INVESTIGATOR by Flash Dailey
== END 2024-03-06 23:08 | disposition home or self-care (01) ==
LOC: ER 18:10
DX: E11.65 Type 2 diabetes mellitus with hyperglycemia (principal)
CPT/HCPCS: 36415; 80048; 80076; 81001; 82010; 82947; 83690; 84100; 85025; 93005; 96361; 96372; 96374; 99285; J7030

== ENCOUNTER 2024-03-11 12:29 | Emergency (ER) | payer OTHER ==
[2024-03-11] MEDS ORDERED: NA CHLORIDE 0.9% 1,000 ML ONE ×2 (13:13→16:07)
[2024-03-11 13:57] LABS: Albumin 3.1 g/dL (3.4-5.0); Albumin/Globulin Ratio 0.8 (1.1-1.8); Anion Gap 12.4 mEq/L (5.0-15.0); BETA HYDROXYBUTYRATE 0.27 mmol/L (0.02-0.27); Bilirubin Total 0.4 mg/dL (0.2-1.0); Globulin 4.1 g/dL (2.3-3.5); Potassium 4.4 mEq/L (3.5-5.1); Protein, Total 7.2 g/dL (6.4-8.2)
[2024-03-11] MEDS ORDERED: INSULIN REGULAR (HUMAN) 100 UNIT/ML ONE ×2 (14:14→16:05)
[2024-03-11 14:31] LABS: Specific Gravity > 1.030 (1.005-1.030); Sqamous Epithelial <5 /HPF (None Seen); Urine Bacteria <20 /HPF (<20); Urine Bilirubin NEGATIVE (Negative); Urine Blood Negative (Negative); Urine Clarity Turbid (Clear); Urine Color Light-Yellow (Yellow); Urine Crystals Unidentified Few /HPF (None Seen); Urine Culture Reflex Order REFLEXED; Urine Glucose 4+ (Over) (Negative); Urine Ketones NEGATIVE (Negative); Urine Microscopic Reflex YN ORDER UMIC; Urine Mucus Slight /HPF (None Seen); Urine Nitrite NEGATIVE (Negative); Urine Protein NEGATIVE (Negative); Urine RBC 21-50 /HPF (None Seen); Urine Urobilinogen Normal (Normal); Urine WBC 20-50 /HPF (<5); Urine Yeast (Budding) Occasional /HPF (None Seen)
[2024-03-11 15:11] LABS: Hematocrit ND % (39.6-49.0); Hemoglobin ND g/dL (13.6-17.9); MCH ND pg (27.0-35.0); MCHC ND g/dL (32.0-36.0); MCV ND fL (80-100); RBC Red Blood Cell Count ND M/uL (4.33-5.43); White Blood Count ND thou/uL (4.3-10.9)
[2024-03-11 15:12] LABS: Absolute Basophils ND K/uL (0-0.5); Absolute Eosinophils ND K/uL (0-0.5); Absolute Lymphocytes (CBC) ND K/uL (0.7-4.9); Absolute Monocytes ND K/uL (0.1-1.3); Absolute Neutrophil ND K/uL (1.8-8.0); Basophils % ND % (0-1.3); Eosinophils % ND % (0-4.4); Lymphocytes % ND % (15.3-44.8); MPV ND fL (7.6-11.3); Monocytes % ND % (3.3-12.3); Neutrophils % ND % (41.7-73.7); Nucleated RBC Absolute Count ND (0-0); Nucleated Red Blood Cells % ND % (0-0); Platelet Distribution Width ND fL (9.0-17.0); Platelets ND thou/uL (152-406); Red Cell Distribution Width ND % (12.1-15.2)
--- NOTE | 2024-03-11 17:30 | EDPHYS ---
Physician Documentation [facility] Name: Delonte Starks Age: 53 yrs Sex: Male : 1970 Arrival Date: 03/11/2024 Time: 12:29 Bed 16 Private MD: ED Physician Ty Lenz HPI: 03/11 13:34 This 53 yrs old Male presents to ER via EMS with complaints of High Blood kb Sugar. 13:34 Pt is a 53 year old male who presents for high blood sugar and fatigue that has been kb ongoing since . States it got worse on Wednesday so he came in. He was given insulin to decrease his sugar and sent home with prescriptions for it, but hasn't been able to pick it up yet. States he is having fatigue, decreased appetite, increased urination today. . Historical: - Allergies: 12:55 No Known Allergies; db - PMHx: 12:55 Diabetes - IDDM; Hypertensive disorder; db - Immunization history:: Adult Immunizations unknown. - Infectious Disease History:: Denies. - Social history:: Smoking status: Patient denies any tobacco usage or history of. ROS: 13:33 Constitutional: As per HPI kb Exam: 13:33 Constitutional: This is a well developed, well nourished patient who is awake, alert, kb and in no acute distress. Head/Face: Normocephalic, atraumatic. ENT: Moist Mucous membranes Cardiovascular: Regular rate Respiratory: Respirations even and unlabored. No increased work of breathing. Talking in full sentences Abdomen/GI: Soft, non-tender. No distention Skin: Warm, dry with normal turgor. Normal color. MS/ Extremity: Pulses equal, no cyanosis. Neurovascular intact. Full, normal range of motion. Neuro: Awake and alert, GCS 15, oriented to person, place, time, and situation. 13:33 ECG was reviewed by the Attending Physician. Vital Signs: 12:55 BP 151 / 89; Pulse 88; Resp 16; Temp 97.4; Pulse Ox 97% ; Weight 107.5 kg; Height 5 ft. db 11 in. ; Pain 0/10; 13:00 BP 145 / 94; Pulse 84; Resp 16; Pulse Ox 95% on R/A; db 14:09 BP 166 / 100; Pulse 91; Resp 20; Pulse Ox 100% on R/A; kj2 15:00 BP 133 / 79; Pulse 87; Resp 16; Pulse Ox 97% on R/A; db 16:00 BP 108 / 63; Pulse 75; Resp 16; Pulse Ox 97% on R/A; db 17:00 BP 137 / 81; Pulse 73; Resp 16; Pulse Ox 97% on R/A; db 12:55 Body Mass Index 33.05 (107.50 kg, 180.34 cm) db 12:55 Pain Scale: Adult db MDM: 12:33 Medical Screening Exam initiated kb 13:33 Differential diagnosis: DKA, hyperglycemia. Data reviewed: vital signs, nurses notes. kb Historians other than the Patient: EMS: [facility]. 17:20 Counseling: I had a detailed discussion with the patient and/or guardian regarding the kb historical points, exam findings, and any diagnostic results supporting the discharge/admit diagnosis, lab results, the need for outpatient follow up, a family practitioner, to return to the emergency department if symptoms worsen or persist or if there are any questions or concerns that arise at home. 17:29 ED course: Pt educated on importance of picking up prescriptions and taking medication kb for management of diabetes. . 03/11 12:34 Order name: CBC with Diff; Complete Time: 15:13 kb 03/11 12:34 Order name: CMP; Complete Time: 14:06 kb 03/11 12:34 Order name: BETA HYDROXYBUTYRATE; Complete Time: 14:06 kb 03/11 12:34 Order name: Urinalysis w/ reflexes; Complete Time: 14:36 kb 03/11 14:35 Order name: Urine Culture EDIL 03/11 15:54 Order name: Glucose, Ancillary Testing; Complete Time: 15:57 EDIL 03/11 15:56 Order name: Glucose, Ancillary Testing EDIL 03/11 17:28 Order name: Glucose, Ancillary Testing; Complete Time: 17:28 EDIL 03/11 12:34 Order name: IV Start; Complete Time: 13:35 kb 03/11 12:34 Order name: EKG - Nurse/Tech; Complete Time: 13:34 kb 03/11 15:13 Order name: Blood Glucose Level; Complete Time: 15:43 kb 03/11 17:18 Order name: Blood Glucose Level; Complete Time: 17:21 kb EC:33 Rate is 85 beats/min. Rhythm is regular. QRS [place] is Normal. [place] interval is normal at kb 156 msec. QRS interval is normal at 88 msec. QT interval is normal at 471 msec. Administered Medications: 13:29 Drug: NS 0.9% IV 1000 ml IV at 1000 ml once; to be given as a bolus over 60 minutes db Route: IV; Rate: 1000 ml; Site: left wrist; 17:17 Follow up: Response: No adverse reaction; IV Status: Completed infusion; IV Intake: db 1000ml 14:17 Drug: Insulin Regular Human IVP 10 units IVP once {Co-Signature: kj2 (Anna Maravilla RN).} Route: IVP; Site: left wrist; 17:17 Follow up: Response: No adverse reaction db 16:09 Drug: NS 0.9% IV 1000 ml IV at 1000 ml once; to be given as a bolus over 60 minutes db Route: IV; Rate: 1000 ml; Site: left wrist; 17:17 Follow up: Response: No adverse reaction; Blood sugar is lowered; IV Status: Completed db infusion; IV Intake: 1000ml 16:09 Drug: Insulin Regular Human Sub-Q 10 units Sub-Q once {Co-Signature: kj2 (negin Maravilla RN).} Route: Sub-Q; Site: left upper arm; 17:17 Follow up: Response: No adverse reaction; Blood sugar is lowered db Point of Care Testing: Blood Glucose: 15:43 Blood Glucose: 425 mg/dL; db 17:16 Blood Glucose: 366 mg/dL; db Ranges: Critical Glucose Levels:Adult <50 mg/dl or >400 mg/dl <40 mg/dl or >180 mg/dl Disposition: 18:25 Co-signature as Attending Physician, Ty Lenz MD I reviewed the patient's care rt provided by the Advanced Practice Provider and agree with the diagnosis and treatment plan. Disposition Summary: 03/11/24 17:29 Discharge Ordered Notes: Location: Home kb Condition: Stable kb Diagnosis - Hyperglycemia, unspecified kb Followup: kb - With: Emergency Department - When: As needed - Reason: Worsening of condition Followup: kb - With: Private Physician - When: 2 - 3 days - Reason: Recheck today's complaints, Continuance of care, Re-evaluation by your physician Discharge Instructions: - Discharge Summary Sheet kb - Hyperglycemia, [id number] kb Forms: - Medication Reconciliation Form kb - Antibiotic Education kb - Prescription Opioid Use kb - Patient Portal Instructions kb - Leadership Thank You Letter kb Signatures: Dispatcher [employer] EDMS Leticia Dominguez FNP-C FNP-Ckb Benton, Danielle, RN RN db Ty Lenz MD MD rt Anna Maravilla RN kj2 Corrections: (The following items were deleted from the chart) 12:34 12:34 CBC+H.LAB.BRZ ordered. EDMS EDMS 12:34 12:34 COMPREHENSIVE METABOLIC PANEL+C.LAB.BRZ ordered. EDMS EDMS 12:34 12:34 BETA HYDROXYBUTYRATE+C.LAB.BRZ ordered. EDMS EDMS 12:34 12:34 Urinalysis+U.LAB.BRZ ordered. EDMS EDMS
--- NOTE | 2024-03-11 17:30 | ER ---
Nurse's Notes [facility] Name: Delonte Starks Age: 53 yrs Sex: Male : 1970 Arrival Date: 03/11/2024 Time: 12:29 Bed 16 Private MD: Diagnosis: Hyperglycemia, unspecified Presentation: 03/11 12:54 Chief complaint: EMS states: PT REPORTED FELT BLOOD SUGAR WAS HIGH AND HAD HARD TIME db BREATHING GLUCOSE 600. 12:55 Coronavirus screen: Client denies travel out of the [place] in the last 14 days. At this db time, the client does not indicate any symptoms associated with coronavirus-19. Ebola Screen: Patient negative for fever greater than or equal to 101.5 degrees Fahrenheit, and additional compatible Ebola Virus Disease symptoms Patient denies exposure to infectious person. Patient denies travel to an Ebola-affected area in the 21 days before illness onset. No symptoms or risks identified at this time. Initial Sepsis Screen: Does the patient meet any 2 criteria? No. Patient's initial sepsis screen is negative. Does the patient have a suspected source of infection? No. Patient's initial sepsis screen is negative. Risk Assessment: Do you want to hurt yourself or someone else? Patient reports no desire to harm self or others. Onset of symptoms was March 11, 2024. 12:55 Method Of Arrival: EMS: [facility] db 12:55 Acuity: ABHISHEK 3 db Triage Assessment: 12:55 General: Appears in no apparent distress. comfortable, Behavior is calm, cooperative. db Pain: Denies pain. Neuro: Level of Consciousness is awake, alert, obeys commands, Oriented to person, place, time, situation. Respiratory: Airway is patent Respiratory effort is even, unlabored, Respiratory pattern is regular, symmetrical. Historical: - Allergies: 12:55 No Known Allergies; db - PMHx: 12:55 Diabetes - IDDM; Hypertensive disorder; db - Immunization history:: Adult Immunizations unknown. - Infectious Disease History:: Denies. - Social history:: Smoking status: Patient denies any tobacco usage or history of. Screenin:57 [facility] ED Fall Risk Assessment (Adult) History of falling in the last 3 months, db including since admission No falls in past 3 months (0 pts) Confusion or Disorientation No (0 pts) Intoxicated or Sedated No (0 pts) Impaired Gait No (0 pts) Mobility Assist Device Used No (0 pt) Altered Elimination No (0 pt) Score/Fall Risk Level 0 - 2 = Low Risk Oriented to surroundings, Maintained a safe environment. Abuse screen: Denies threats or abuse. Denies injuries from another. Nutritional screening: No deficits noted. Tuberculosis screening: No symptoms or risk factors identified. Assessment: 12:57 Reassessment: Patient appears in no apparent distress at this time. Patient and/or db family updated on plan of care and expected duration. Pain level reassessed. Patient is alert, oriented x 3, equal unlabored respirations, skin warm/dry/pink. General: Appears in no apparent distress. comfortable, Behavior is calm, cooperative. Neuro: Level of Consciousness is awake, alert, obeys commands, Oriented to person, place, time, situation. Respiratory: Airway is patent Respiratory effort is even, unlabored, Respiratory pattern is regular, symmetrical. 14:09 Reassessment: Patient appears in no apparent distress at this time. Patient and/or kj2 family updated on plan of care and expected duration. Pain level reassessed. Patient is alert, oriented x 3, equal unlabored respirations, skin warm/dry/pink. 15:43 Reassessment: Patient appears in no apparent distress at this time. Patient and/or db family updated on plan of care and expected duration. Pain level reassessed. Patient is alert, oriented x 3, equal unlabored respirations, skin warm/dry/pink. 16:13 Reassessment: Patient appears in no apparent distress at this time. Patient and/or db family updated on plan of care and expected duration. Pain level reassessed. Patient is alert, oriented x 3, equal unlabored respirations, skin warm/dry/pink. 17:49 Reassessment: Patient appears in no apparent distress at this time. Patient and/or db family updated on plan of care and expected duration. Pain level reassessed. Patient is alert, oriented x 3, equal unlabored respirations, skin warm/dry/pink. PATIENT PROVIDED SANDWICH Patient states feeling better. Vital Signs: 12:55 BP 151 / 89; Pulse 88; Resp 16; Temp 97.4; Pulse Ox 97% ; Weight 107.5 kg; Height 5 ft. db 11 in. ; Pain 0/10; 13:00 BP 145 / 94; Pulse 84; Resp 16; Pulse Ox 95% on R/A; db 14:09 BP 166 / 100; Pulse 91; Resp 20; Pulse Ox 100% on R/A; kj2 15:00 BP 133 / 79; Pulse 87; Resp 16; Pulse Ox 97% on R/A; db 16:00 BP 108 / 63; Pulse 75; Resp 16; Pulse Ox 97% on R/A; db 17:00 BP 137 / 81; Pulse 73; Resp 16; Pulse Ox 97% on R/A; db 12:55 Body Mass Index 33.05 (107.50 kg, 180.34 cm) db 12:55 Pain Scale: Adult db ED Course: 12:33 Patient arrived in ED. kb 12:33 Leticia Dominguez FNP-C is PHCP. kb 12:33 Ty Lenz MD is Attending Physician. kb 12:54 Jazmyn Sexton, SALEEM is Primary Nurse. db 12:56 Triage completed. db 12:57 Arm band placed on Patient placed in an exam room. db 12:57 Patient has correct armband on for positive identification. Bed in low position. Call db light in reach. Side rails up X 1. Pulse ox on. NIBP on. 13:29 Initial lab(s) drawn, by me, sent to lab. EKG done. Inserted saline lock: 20 gauge in db left wrist, using aseptic technique. Blood collected. Flushed with 10 mL NS. 17:16 Glucose, Ancillary Testing Sent. db 17:49 Provided Education on: DISCHARGE AND FOLLOWUP. db 17:49 No provider procedures requiring assistance completed. IV discontinued, intact, db bleeding controlled, No redness/swelling at site. Administered Medications: 13:29 Drug: NS 0.9% IV 1000 ml IV at 1000 ml once; to be given as a bolus over 60 minutes db Route: IV; Rate: 1000 ml; Site: left wrist; 17:17 Follow up: Response: No adverse reaction; IV Status: Completed infusion; IV Intake: db 1000ml 14:17 Drug: Insulin Regular Human IVP 10 units IVP once {Co-Signature: kj2 (Anna Maravilla db RN).} Route: IVP; Site: left wrist; 17:17 Follow up: Response: No adverse reaction db 16:09 Drug: NS 0.9% IV 1000 ml IV at 1000 ml once; to be given as a bolus over 60 minutes db Route: IV; Rate: 1000 ml; Site: left wrist; 17:17 Follow up: Response: No adverse reaction; Blood sugar is lowered; IV Status: Completed db infusion; IV Intake: 1000ml 16:09 Drug: Insulin Regular Human Sub-Q 10 units Sub-Q once {Co-Signature: kj2 (negin Maravilla RN).} Route: Sub-Q; Site: left upper arm; 17:17 Follow up: Response: No adverse reaction; Blood sugar is lowered db Medication: 12:57 VIS not applicable for this client. db Point of Care Testing: Blood Glucose: 15:43 Blood Glucose: 425 mg/dL; db 17:16 Blood Glucose: 366 mg/dL; db Ranges: Intake: 17:17 IV: 1000ml; Total: 1000ml. db 17:17 IV: 1000ml; Total: 2000ml. db Outcome: 17:29 Discharge ordered by kb 17:49 Discharged to home ambulatory, db 17:49 Condition: stable 17:49 Discharge instructions given to patient, Instructed on discharge instructions, follow up and referral plans. 17:51 Patient left the ED. db Signatures: Leticia Dominguez, PIER MASTER ASSISTANT-C PIER MASTER ASSISTANT-Jazmyn Norwood RN RN Anna De La Cruz, RN RN kj2 Anna Maravilla RN kj2
[2024-03-11 20:18] VITALS: TEMP 97.4
[2024-03-11 20:21] VITALS: O2SAT 97
[2024-03-11 20:23] VITALS: BP 137/81
--- NOTE | 2024-03-15 12:43 | EKG ---
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
== END 2024-03-11 17:51 | disposition home or self-care (01) ==
LOC: ER 12:29
DX: E11.65 Type 2 diabetes mellitus with hyperglycemia (principal)
CPT/HCPCS: 96361; 87088; 85025; 81001; 87086; 36415; 82947 ×2; 80053; 82010; 96372; 96374; 99285; J7030 ×2; 87077; 87186; 93005

== ENCOUNTER 2024-04-20 19:10 | Emergency (ER) | payer OTHER ==
--- NOTE | 2024-04-20 20:27 | ER ---
Nurse's Notes [facility] Name: Delonte Starks Age: 53 yrs Sex: Male : 1970 Arrival Date: 04/20/2024 Time: 19:10 Bed IW2 Private MD: Diagnosis: Presentation: 04/20 19:22 Chief complaint: Patient states: COUGH TX 1 MONTH. EVERYONE AT THE [facility] HAS jj7 PNEUMONIA. HEADACHE, CAN'T SLEEP BECAUSE IT'S TO HOT. FEELING A LITTLE BETTER NOW THAT HE IS OUT OF THE HEAT. Coronavirus screen: At this time, the client does not indicate any symptoms associated with coronavirus-19. Ebola Screen: No symptoms or risks identified at this time. Initial Sepsis Screen: Does the patient meet any 2 criteria? HR > 90 bpm. Yes Does the patient have a suspected source of infection? No. Patient's initial sepsis screen is negative. Risk Assessment: Do you want to hurt yourself or someone else? Patient reports no desire to harm self or others. Onset of symptoms was April 15, 2024. 19:22 Method Of Arrival: EMS: [facility] j7 19:22 Acuity: ABHISHEK 4 jj7 Triage Assessment: 19:26 General: Appears in no apparent distress. comfortable, Behavior is calm, cooperative, jj7 appropriate for age. Pain: Complains of pain in chest. Neuro: Reports headache. Respiratory: Reports cough that is productive, pain with cough Onset: The symptoms/episode began/occurred 1 WEEKS, the patient has mild shortness of breath. Historical: - Allergies: 19:26 No Known Allergies; jj7 - PMHx: 19:26 Diabetes - IDDM; Hypertensive disorder; jj7 - PSHx: 19:26 None; jj7 - Immunization history:: Adult Immunizations not up to date. - Infectious Disease History:: Denies. - Social history:: Smoking status: Patient denies any tobacco usage or history of. Patient/guardian denies using alcohol, street drugs, IV drugs. Vital Signs: 19:22 BP 152 / 85; Pulse 92; Resp 20; Temp 99.5; Pulse Ox 97% ; Weight 115.21 kg; Height 5 jj7 ft. 11 in. ; 19:22 Body Mass Index 35.42 (115.21 kg, 180.34 cm) jj7 ED Course: 19:11 Patient arrived in ED. im 19:26 Triage completed. jj7 19:26 Arm band placed on left wrist. jj7 19:57 Amelia Mead PA-C is [facility]. sb4 19:57 Ty Lenz MD is Attending Physician. sb4 Administered Medications: No medications were administered Outcome: 20:26 Patient left the ED. br2 Signatures: Aida Ordoñez RN RN jj7 Amelia Mead PA-C PA-C sb4 Sherrie Perez Soraya Shah RN RN br2 Corrections: (The following items were deleted from the chart) 19:50 19:22 BP 152 / 85; Pulse 96bpm; Resp 20bpm; Pulse Ox 92%; Temp 99.5F; 115.21 kg; Height j7 5 ft. 11 in.; BMI: 35.4; jj7
[2024-04-20 20:37] VITALS: BP 152/85; TEMP 99.5; O2SAT 97
--- NOTE | 2024-04-21 20:26 | EDPHYS ---
Physician Documentation [facility] Name: Delonte Starks Age: 53 yrs Sex: Male : 1970 Arrival Date: 04/20/2024 Time: 19:10 Bed IW2 Private MD: ED Physician Ty Lenz Historical: - Allergies: 04/20 19:26 No Known Allergies; jj7 - PMHx: 19:26 Diabetes - IDDM; Hypertensive disorder; jj7 - PSHx: 19:26 None; jj7 - Immunization history:: Adult Immunizations not up to date. - Infectious Disease History:: Denies. - Social history:: Smoking status: Patient denies any tobacco usage or history of. Patient/guardian denies using alcohol, street drugs, IV drugs. Vital Signs: 19:22 BP 152 / 85; Pulse 92; Resp 20; Temp 99.5; Pulse Ox 97% ; Weight 115.21 kg; Height 5 jj7 ft. 11 in. ; 19:22 Body Mass Index 35.42 (115.21 kg, 180.34 cm) jj7 MDM: 19:57 Medical Screening Exam initiated sb4 Administered Medications: No medications were administered Disposition: 21:12 Chart complete. sb4 Disposition Summary: 04/20/24 20:26 Eloped Notes: Disposition: before being seen by provider br2 Reason: (see nurse's notes) br2 Addendum: 04/22/2024 19:20 Co-signature as Attending Physician, Ty Lenz MD I reviewed the patient's care r t provided by the Advanced Practice Provider and agree with the diagnosis and treatment plan. Signatures: Dispatcher [employer] Aida Naqvi RN RN jj7 Amelia Mead, PAGuillermina PADelfinC sb4 Ty Lenz MD MD rt Soraya Shah RN RN br2
== END 2024-04-20 20:26 | disposition left against medical advice (07) ==
LOC: ER 19:10
DX: Z53.21 Procedure and treatment not carried out due to patient leaving prior to being seen by health care provider (principal)
CPT/HCPCS: 99282

== ENCOUNTER 2024-07-04 14:54 | Emergency (ER) | payer OTHER ==
[2024-07-04] MEDS ORDERED: NA CHLORIDE 0.9% 1,000 ML ONE (15:07)
[2024-07-04 15:34] LABS: Absolute Basophils 0.1 K/uL (0-0.5); Absolute Eosinophils 0.1 K/uL (0-0.5); Absolute Lymphocytes (CBC) 0.9 K/uL (0.7-4.9); Absolute Monocytes 0.2 K/uL (0.1-1.3); Basophils % 1.1 % (0-1.3); Eosinophils % 0.9 % (0-4.4); Hematocrit 33.3 % (39.6-49.0); Hemoglobin 10.9 g/dL (13.6-17.9); Lymphocytes % 12.3 % (15.3-44.8); MCH 25.6 pg (27.0-35.0); MCHC 32.7 g/dL (32.0-36.0); MCV 78.4 fL (80-100); MPV 7.8 fL (7.6-11.3); Monocytes % 2.9 % (3.3-12.3); Neutrophils % 82.8 % (41.7-73.7); Nucleated Red Blood Cells % 0.1 % (0-0); Platelets 323 thou/uL (152-406); RBC Red Blood Cell Count 4.25 M/uL (4.33-5.43); Red Cell Distribution Width 16.4 % (12.1-15.2)
[2024-07-04 15:51] LABS: Anion Gap 6.8 mEq/L (5.0-15.0); Potassium 3.8 mEq/L (3.5-5.1); Troponin High Sensitivity 4.5 pg/mL (<58.9)
--- NOTE | 2024-07-04 17:07 | RAD REPORT ---
EXAMINATION: ONE VIEW CHEST XR CLINICAL INDICATION: Male, 54 years old.,CHEST PAIN TECHNIQUE: Frontal chest projection is submitted. Examination is limited by patient positioning and t echnique. COMPARISON: 07/27/2017 FINDINGS: The lungs are well inflated and clear. No pneumothorax or sizable effusion. The heart is normal in s ize. Mediastinal contours are unchanged with tortuosity of the thoracic aorta. IMPRESSION: No acute intrathoracic abnormalities.
--- NOTE | 2024-07-04 17:35 | EDPHYS ---
Physician Documentation [facility] Name: Delonte Starks Age: 54 yrs Sex: Male : 1970 Arrival Date: 07/04/2024 Time: 14:54 Bed 14 Private MD: ED Physician Shahram Jolly HPI: 07/04 16:16 This 54 yrs old Male presents to ER via EMS with complaints of Doesn't Feel ms3 Right. 16:16 54-year-old male with past medical history of diabetes and hypertension presents to the [facility] emergency department for being in the sun for 2 days and states he does not feel well and is sweating. Patient notes he is having dizziness with walking and palpitations for the last 3 days. Patient denies nausea, vomiting, abdominal pain.. Historical: - Allergies: 15:09 No Known Allergies; kj2 - Home Meds: 15:09 Lantus Sub-Q [Active]; kj2 - PMHx: 15:09 Diabetes - IDDM; Hypertensive disorder; kj2 - Immunization history:: Adult Immunizations unknown. - Infectious Disease History:: Denies. - Social history:: Smoking status: unknown. ROS: 16:16 Cardiovascular: Negative for chest pain, and palpitations. Respiratory: Negative for ms3 shortness of breath, cough, wheezing, and pleuritic chest pain, Abdomen/GI: Negative for abdominal pain, nausea, vomiting, diarrhea, and constipation, MS/Extremity: Negative for injury and deformity, Skin: Negative for injury, rash, and discoloration, 16:16 Constitutional: Positive for malaise, Exam: 16:17 Constitutional: This is a well developed, well nourished patient who is awake, alert, ms3 and in no acute distress. Cardiovascular: Regular rate and rhythm with a normal S1 and S2. No gallops, murmurs, or rubs. Normal PMI, no JVD. No pulse deficits. Respiratory: Lungs have equal breath sounds bilaterally, clear to auscultation and percussion. No rales, rhonchi or wheezes noted. No increased work of breathing, no retractions or nasal flaring. Abdomen/GI: Soft, non-tender, with normal bowel sounds. No distension or tympany. No guarding or rebound. No evidence of tenderness throughout. Skin: Warm, dry with normal turgor. Normal color with no rashes, no lesions, and no evidence of cellulitis. MS/ Extremity: Pulses equal, no cyanosis. Neurovascular intact. Full, normal range of motion. 16:23 ECG was reviewed by the Attending Physician. ms3 Vital Signs: 15:07 BP 140 / 86; Pulse 98; Resp 20; Temp 98.4; Pulse Ox 100% ; Weight 109.77 kg; Height 5 kj2 ft. 11 in. ; 16:10 BP 165 / 98; Pulse 81; Resp 20; Pulse Ox 100% on R/A; kj2 16:56 BP 148 / 83; Pulse 90; Resp 20; Pulse Ox 100% on R/A; kj2 17:55 BP 150 / 82; Pulse 88; Resp 20; Temp 98; Pulse Ox 100% on R/A; kj2 15:07 Body Mass Index 33.75 (109.77 kg, 180.34 cm) kj2 MDM: 15:08 Medical Screening Exam initiated ms3 16:17 Differential Diagnosis Electrolyte abnormality versus anemia versus SC. ms3 17:35 Data reviewed: vital signs, nurses notes, lab test result(s), EKG, radiologic studies, ms3 and as a result, I will discharge patient. I considered the following discharge prescriptions or medication management in the emergency department Medications were administered in the Emergency Department. See MAR. Independent interpretation of the following test(s) in the Emergency Department EKG: See my EKG interpretation above. Historians other than the Patient: EMS: [facility]. Counseling: I had a detailed discussion with the patient and/or guardian regarding the historical points, exam findings, and any diagnostic results supporting the discharge/admit diagnosis, lab results, radiology results, the need for outpatient follow up, to return to the emergency department if symptoms worsen or persist or if there are any questions or concerns that arise at home. Special discussion: I discussed with the patient/guardian in detail that at this point there is no indication for admission to the hospital. It is understood, however, that if the symptoms persist or worsen the patient needs to return immediately for re-evaluation. ED course: Discussed labs with patient. Patient to follow-up with primary care physician 2 to 3 days. Patient understands and agrees with plan. All questions were answered. Return precautions discussed include worsening symptoms, or any other concerns.. 07/04 15:08 Order name: Basic Metabolic Panel; Complete Time: 15:55 ms3 07/04 15:08 Order name: CBC with Diff; Complete Time: 15:55 ms3 07/04 15:08 Order name: Troponin HS; Complete Time: 15:55 ms3 07/04 15:08 Order name: XRAY Chest (1 view); Complete Time: 17:17 ms3 07/04 15:08 Order name: Cardiac monitoring; Complete Time: 16:58 ms3 07/04 15:08 Order name: EKG - Nurse/Tech; Complete Time: 16:58 ms3 07/04 15:08 Order name: IV Saline Lock; Complete Time: 15:28 ms3 07/04 15:08 Order name: Labs collected and sent; Complete Time: 15:28 ms3 07/04 15:08 Order name: O2 Per Protocol; Complete Time: 16:58 ms3 07/04 15:08 Order name: O2 Sat Monitoring; Complete Time: 16:58 ms3 EC:23 Rate is 83 beats/min. Rhythm is regular. Left axis deviation noted. RI interval is ms3 normal. QRS interval is normal. Clinical impression: NSR w/ Non-specific ST/T Changes. Interpreted by me. Reviewed by me. Administered Medications: 15:28 Drug: NS 0.9% IV 1000 ml IV at 1000 ml once; to be given as a bolus over 60 minutes kj2 Route: IV; Rate: 1000 ml; Site: right antecubital; 17:56 Follow up: IV Status: Completed infusion; IV Intake: 1000ml kj2 Disposition Summary: 07/04/24 17:34 Discharge Ordered Notes: Location: Home ms3 Condition: Stable ms3 Diagnosis - Anemia, unspecified ms3 - Palpitations ms3 Followup: ms3 - With: Filemon Chavez DO - When: 2 - 3 days - Reason: Recheck today's complaints Discharge Instructions: - Discharge Summary Sheet ms3 - Anemia ms3 - Palpitations ms3 Forms: - Medication Reconciliation Form ms3 - Antibiotic Education ms3 - Prescription Opioid Use ms3 - Patient Portal Instructions ms3 - Leadership Thank You Letter ms3 Signatures: Dispatcher [employer] Shahram Sierra DO DO ms3 Anna Maravilla, RN RN kj2 Corrections: (The following items were deleted from the chart) 15:08 15:08 BASIC METABOLIC PANEL+C.LAB.BRZ ordered. EDMS EDMS 15: 15:08 CBC+H.LAB.BRZ ordered. EDMS EDMS 15: 15:08 Troponin High Sensitivity+C.LAB.BRZ ordered. EDMS EDMS 15: 15:08 Chest Single View+RAD.RAD.BRZ ordered. EDMS EDMS
--- NOTE | 2024-07-04 17:35 | ER ---
Nurse's Notes [facility] Name: Delonte Starks Age: 54 yrs Sex: Male : 1970 Arrival Date: 07/04/2024 Time: 14:54 Bed 14 Private MD: Diagnosis: Anemia, unspecified;Palpitations Presentation: 07/04 15:07 Chief complaint: EMS states: does not feel well. Coronavirus screen: Client denies kj2 travel out of the [place] in the last 14 days. Ebola Screen: No symptoms or risks identified at this time. Initial Sepsis Screen: Does the patient meet any 2 criteria? No. Patient's initial sepsis screen is negative. Does the patient have a suspected source of infection? No. Patient's initial sepsis screen is negative. Risk Assessment: Do you want to hurt yourself or someone else? Patient reports no desire to harm self or others. Onset of symptoms was July 04, 2024. 15:07 Method Of Arrival: EMS: [facility] kj2 15:07 Acuity: ABHISHEK 3 kj2 Triage Assessment: 15:09 General: Appears in no apparent distress. Behavior is cooperative. Pain: Denies pain. kj2 Neuro: Level of Consciousness is awake, alert, obeys commands, Oriented to person, place, time, situation. Cardiovascular: Patient's skin is warm and dry. Respiratory: Airway is patent Respiratory effort is unlabored. GI: No signs and/or symptoms were reported involving the gastrointestinal system. : No signs and/or symptoms were reported regarding the genitourinary system. Historical: - Allergies: 15:09 No Known Allergies; kj2 - Home Meds: 15:09 Lantus Sub-Q [Active]; kj2 - PMHx: 15:09 Diabetes - IDDM; Hypertensive disorder; kj2 - Immunization history:: Adult Immunizations unknown. - Infectious Disease History:: Denies. - Social history:: Smoking status: unknown. Screenin:10 [place] ED Fall Risk Assessment (Adult) History of falling in the last 3 months, kj2 including since admission No falls in past 3 months (0 pts) Confusion or Disorientation No (0 pts) Intoxicated or Sedated No (0 pts) Impaired Gait No (0 pts) Mobility Assist Device Used No (0 pt) Altered Elimination No (0 pt) Score/Fall Risk Level 0 - 2 = Low Risk Maintained a safe environment, Hourly rounding (assess needs \T\ fall precautionary measures) done. Abuse screen: Denies threats or abuse. Denies injuries from another. Nutritional screening: No deficits noted. Tuberculosis screening: No symptoms or risk factors identified. Assessment: 15:10 General: see triage assessment. kj2 16:10 Reassessment: Patient appears in no apparent distress at this time. Patient and/or kj2 family updated on plan of care and expected duration. Pain level reassessed. Patient is alert, oriented x 3, equal unlabored respirations, skin warm/dry/pink. 16:58 Reassessment: Patient appears in no apparent distress at this time. Patient and/or kj2 family updated on plan of care and expected duration. Pain level reassessed. Patient is alert, oriented x 3, equal unlabored respirations, skin warm/dry/pink. 17:55 Reassessment: Patient appears in no apparent distress at this time. No changes from kj2 previously documented assessment. Patient and/or family updated on plan of care and expected duration. Pain level reassessed. Vital Signs: 15:07 BP 140 / 86; Pulse 98; Resp 20; Temp 98.4; Pulse Ox 100% ; Weight 109.77 kg; Height 5 kj2 ft. 11 in. ; 16:10 BP 165 / 98; Pulse 81; Resp 20; Pulse Ox 100% on R/A; kj2 16:56 BP 148 / 83; Pulse 90; Resp 20; Pulse Ox 100% on R/A; kj2 17:55 BP 150 / 82; Pulse 88; Resp 20; Temp 98; Pulse Ox 100% on R/A; kj2 15:07 Body Mass Index 33.75 (109.77 kg, 180.34 cm) kj2 ED Course: 15:05 Patient arrived in ED. kj2 15:07 Anna Maravilla, RN is Primary Nurse. kj2 15:08 Shahram Jolly DO is Attending Physician. ms3 15:09 Triage completed. kj2 15:11 Patient has correct armband on for positive identification. Provided Education on: call kj2 light. 15:34 XRAY Chest (1 view) In Process Unspecified. EDMS 16:02 EKG done, by ED staff. tm3 17:34 Filemon Chavez DO is Referral Physician. ms3 17:55 No provider procedures requiring assistance completed. IV discontinued, intact, kj2 bleeding controlled, No redness/swelling at site. Pressure dressing applied. 17:56 Arm band placed on. kj2 Administered Medications: 15:28 Drug: NS 0.9% IV 1000 ml IV at 1000 ml once; to be given as a bolus over 60 minutes kj2 Route: IV; Rate: 1000 ml; Site: right antecubital; 17:56 Follow up: IV Status: Completed infusion; IV Intake: 1000ml kj2 Medication: 15:11 VIS not applicable for this client. kj2 Intake: 17:56 IV: 1000ml; Total: 1000ml. kj2 Outcome: 17:34 Discharge ordered by . ms3 17:56 Discharged to home kj2 17:56 Condition: stable 17:56 Discharge instructions given to Instructed on discharge instructions, follow up and referral plans. Demonstrated understanding of instructions, follow-up care, 18:01 Patient left the ED. kj2 Signatures: Dispatcher [employer] EDMS Darek Oakes 3 Shahram Jolly DO DO ms3 Anna Maravilla, RN RN kj2
[2024-07-04 18:11] VITALS: O2SAT 100
[2024-07-04 18:15] VITALS: BP 150/82; TEMP 98
== END 2024-07-04 18:01 | disposition home or self-care (01) ==
LOC: ER 14:54
DX: D64.9 Anemia, unspecified (principal); E11.9 Type 2 diabetes mellitus without complications; Z79.4 Long term (current) use of insulin; I10 Essential (primary) hypertension
CPT/HCPCS: 96361; 93005; 85025; 80048; 36415; 84484; 71045; 96360; 99284; J7030

== ENCOUNTER 2024-07-06 13:12 | Emergency (ER) | payer OTHER ==
--- NOTE | 2024-07-06 15:49 | EDPHYS ---
Physician Documentation [facility] Name: Delonte Starks Age: 54 yrs Sex: Male : 1970 Arrival Date: 07/06/2024 Time: 13:12 Bed IW10 Private MD: ED Physician HPI: 07/06 13:31 This 54 yrs old Male presents to ER via EMS with complaints of Abdominal Pain. sb4 Historical: - Allergies: 13:30 No Known Allergies; ll1 - PMHx: 13:30 Diabetes - IDDM; Hypertensive disorder; ll1 - PSHx: 13:30 polypectomy; ll1 - Immunization history:: Adult Immunizations up to date. - Social history:: Smoking status: Patient denies any tobacco usage or history of. Vital Signs: 13:28 BP 154 / 93; Pulse 79; Resp 16; Temp 97.6; Pulse Ox 99% ; Weight 104.33 kg; Height 5 ll1 ft. 11 in. ; Pain 5/10; 13:28 Body Mass Index 32.08 (104.33 kg, 180.34 cm) ll1 13:28 Pain Scale: Adult ll1 MDM: 13:26 Medical Screening Exam initiated sb4 Administered Medications: No medications were administered Disposition Summary: 07/06/24 15:49 Eloped Notes: Disposition: before being seen by provider ap3 Reason: unknown ap3 Signatures: Mya Larios RN RN ap3 Phil Chappell RN RN ll1 Amelia Mead PA-C PAGuillermina sb4 Corrections: (The following items were deleted from the chart) 13:30 13:30 PSHx: None; ll1 ll1
--- NOTE | 2024-07-06 15:49 | ER ---
Nurse's Notes [facility] Name: Delonte Starks Age: 54 yrs Sex: Male : 1970 Arrival Date: 07/06/2024 Time: 13:12 Bed IW10 Private MD: Diagnosis: Presentation: 07/06 13:16 Coronavirus screen: Client denies travel out of the [place] in the last 14 days. At this ll1 time, the client does not indicate any symptoms associated with coronavirus-19. 13:16 Method Of Arrival: EMS ll1 13:28 Chief complaint: Patient states: Abdominal pain for 1 week. + BACH, no fever this week. ll1 Ebola Screen: Patient denies travel to an Ebola-affected area in the 21 days before illness onset. Initial Sepsis Screen: Does the patient meet any 2 criteria? No. Patient's initial sepsis screen is negative. Does the patient have a suspected source of infection? No. Patient's initial sepsis screen is negative. Risk Assessment: Do you want to hurt yourself or someone else? Patient reports no desire to harm self or others. Onset of symptoms was June 29, 2024. 13:28 Acuity: ABHISHEK 3 ll1 13:31 Chief complaint: EMS states: BP elevated 182/105, FS 242. ll1 13:31 Method Of Arrival: EMS: [facility] 1 Triage Assessment: 13:30 General: Appears uncomfortable, Behavior is calm, cooperative, appropriate for age. ll1 Pain: Complains of pain in abdomen. GI: Reports lower abdominal pain, upper abdominal pain. Historical: - Allergies: 13:30 No Known Allergies; ll1 - PMHx: 13:30 Diabetes - IDDM; Hypertensive disorder; ll1 - PSHx: 13:30 polypectomy; ll1 - Immunization history:: Adult Immunizations up to date. - Social history:: Smoking status: Patient denies any tobacco usage or history of. Assessment: 15:48 General: attempted to call patient from lobby. unable to locate patient at this time. . ap3 Vital Signs: 13:28 BP 154 / 93; Pulse 79; Resp 16; Temp 97.6; Pulse Ox 99% ; Weight 104.33 kg; Height 5 ll1 ft. 11 in. ; Pain 5/10; 13:28 Body Mass Index 32.08 (104.33 kg, 180.34 cm) ll1 13:28 Pain Scale: Adult ll1 ED Course: 13:15 Patient arrived in ED. mr 13:24 Amelia Mead PA-C is PHCP. sb4 13:24 Wes Hollingsworth MD is Attending Physician. sb4 13:30 Triage completed. ll1 13:31 Arm band placed on. ll1 Administered Medications: No medications were administered Outcome: 15:49 Patient left the ED. ap3 Signatures: Magda Lorenzo, Reg Reg mr Mya Larios, RN RN ap3 Phil Chappell RN RN ll1 Amelia Mead PA-C PA-C sb4 Corrections: (The following items were deleted from the chart) 13:30 13:30 PSHx: None; ll1 ll1
[2024-07-06 16:11] VITALS: BP 154/93; TEMP 97.6; O2SAT 99
== END 2024-07-06 15:49 | disposition left against medical advice (07) ==
LOC: ER 13:12
DX: Z53.21 Procedure and treatment not carried out due to patient leaving prior to being seen by health care provider (principal)
CPT/HCPCS: 99282